=== PATIENT | female | born 1995 | race Caucasian/White ===

== ENCOUNTER 2017-05-16 17:01 | Emergency (ER) | payer OTHER ==
[~2017-05-16] VITALS: Ht 157.5 cm; Wt 88.5 kg
[~2017-05-16 17:01] MED LIST: PHENERGAN25 MG PR; PROMETHAZINE HC25 M1 PO; [UNRECOGNIZED DRUG - OTHER] PO
[2017-05-16 18:46] LABS: HEMATOCRIT 40.1 % (36.0-46.0); HEMOGLOBIN 13.3 G/DL (11.9-15.5); MCH 27.4 PG (29.0-34.0); MCHC 33.2 G/DL (30.0-36.0); MCV 82.7 FL (83-99); RBC DIS.WIDTH-CV 12.5 % (11.8-14.6); RBC DIS.WIDTH-SD 37.4 % (39-53); RED BLOOD COUNT 4.85 M/uL (3.80-5.20); WHITE BLOOD COUNT 7.8 K/uL (4.1-10.2)
[2017-05-16 19:00] LABS: CHLORIDE 109 mEq/L (99-109); POTASSIUM 4.1 mEq/L (3.7-5.4); SODIUM 140 mEq/L (136-147)
[2017-05-16 19:02] LABS: GLUCOSE 86 mg/dL (70-99)
[2017-05-16 19:05] LABS: CREATININE 0.6 mg/dL (0.6-1.3); GFR ESTIMATE (CALCULATED) > 59 mL/min/
[2017-05-16 19:06] LABS: UREA NITROGEN (BUN) 15 mg/dL (9-23)
[2017-05-16 19:15] LABS: QUANTITATIVE HCG < 4.0 MIU/ML
[2017-05-16 19:27] LABS: TROP-I INTERPRETATION NEGATIVE; TROPONIN-I < 0.01 ng/mL (0.0-0.30)
[2017-05-16 20:18] LABS: PLATELET COUNT 271 K/uL (156-360)
[2017-05-16 21:22] VITALS: BP 112/62
== END 2017-05-16 21:23 | disposition left against medical advice (07) ==
LOC: EME 17:01
PROVIDERS: Physician Assistant Medical
DX: R07.9 Chest pain, unspecified (principal); R55 Syncope and collapse; R42 Dizziness and giddiness; R11.0 Nausea; M54.2 Cervicalgia; V47.5XXA Car driver injured in collision with fixed or stationary object in traffic accident, initial encounter; Y92.410 Unspecified street and highway as the place of occurrence of the external cause; M32.9 Systemic lupus erythematosus, unspecified; I44.0 Atrioventricular block, first degree; Z53.20 Procedure and treatment not carried out because of patient's decision for unspecified reasons
CPT/HCPCS: 70450; 72125; 80048; 84484; 84702; 85027; 93005; 99281; 99285